=== PATIENT | female | born 1990 | race Caucasian/White ===

== ENCOUNTER → 2025-06-15 | Outpatient (CLI) | payer OTHER ==
[2025-06-15 09:28] LABS: BASO # 0.1 10^3/uL (0.0-0.2); BASO % 0.7 % (0.0-1.0); EOS # 0.2 10^3/uL (0.0-0.5); EOS % 3.1 % (0.0-3.0); LYMPH # 2.4 10^3/uL (1.5-5.0); LYMPH % 33.4 % (24.0-44.0); MONO # 0.7 10^3/uL (0.0-0.8); MONO % 9.0 % (2.0-8.0); NEUTROPHILS # 3.9 10^3/uL (1.5-8.5); NEUTROPHILS % 53.5 % (36.0-66.0); PLATELET COUNT, AUTOMATED 339 10^3/uL (150-450)
[2025-06-15 09:56] LABS: ALT/SGPT 15 U/L (7.0-40); AST/SGOT 18 U/L (<34); CALCIUM LEVEL 9.0 MG/DL (8.5-10.1); CARBON DIOXIDE LEVEL 23 MMOL/L (20-31); CHLORIDE LEVEL 105 MMOL/L (98-107); CREATININE FOR GFR 0.67 MG/DL (0.55-1.30); GLOMERULAR FILTRATION RATE > 90.0 (>60); IRON (FE) 201 UG/DL (50-170); PERCENT SATURATION 49.9 % (13.2-45.0); POTASSIUM SERUM 4.5 MMOL/L (3.5-5.1); SODIUM LEVEL 138 MMOL/L (136-145)
[2025-06-15 09:58] LABS: FREE T4 1.20 NG/DL (0.89-1.76)
[2025-06-15 10:09] LABS: HCG, SERUM QUANTITATIVE 22354.1 MIU/ML (<4.2)
== END ==
LOC: M LAB 08:23
PROVIDERS: ATTEND Nurse Practitioner Adult Health
DX: O99.011 Anemia complicating pregnancy, first trimester (principal); Z3A.01 Less than 8 weeks gestation of pregnancy; D50.9 Iron deficiency anemia, unspecified

== ENCOUNTER → 2025-06-22 | Outpatient (CLI) | payer OTHER | LOC: M LAB 08:35 | PROVIDERS: ATTEND Physician Assistant | DX: Z34.01 Encounter for supervision of normal first pregnancy, first trimester (principal); Z3A.01 Less than 8 weeks gestation of pregnancy ==

== ENCOUNTER → 2025-06-29 | Outpatient (CLI) | payer OTHER | LOC: M LAB 08:46 → M PLALAB 08:46 | PROVIDERS: ATTEND Physician Assistant | DX: Z3A.01 Less than 8 weeks gestation of pregnancy (principal) ==

== ENCOUNTER → 2025-08-06 | Outpatient (REF) | payer OTHER | LOC: M PLALAB 12:49 | PROVIDERS: ATTEND Student in an Organized Health Care Education/Training Program | DX: Z53.9 Procedure and treatment not carried out, unspecified reason (principal) ==

== ENCOUNTER → 2025-08-07 | Outpatient (CLI) | payer OTHER ==
[2025-08-07 19:29] LABS: TOTAL PROTEIN,RANDOM URINE 8.8 MG/DL (0.0-14.0)
[2025-08-07 19:36] LABS: LDH LACTATE DEHYDROGENASE 193 U/L (120-246)
[2025-08-07 19:37] LABS: ALT/SGPT 22 U/L (7.0-40); AST/SGOT 21 U/L (<34); CREATININE FOR GFR 0.74 MG/DL (0.55-1.30); GLOMERULAR FILTRATION RATE > 90.0 (>60); PLATELET COUNT, AUTOMATED 310 10^3/uL (150-450)
[2025-08-07 19:48] LABS: PLATELET COUNT, AUTOMATED 293 10^3/uL (150-450)
[2025-08-07 19:59] LABS: HIV 1&2 SCREEN NEGATIVE (NEGATIVE)
[2025-08-07 20:08] LABS: HEPATITIS C VIRUS ABY INDEX < 0.02 INDEX (<0.8)
[2025-08-07 20:20] LABS: Trichomonas vaginalis (AMP) NOT DETECTED (NEGATIVE)
[2025-08-07 20:44] LABS: GC DNA AMPLIFICATION NEGATIVE (NEGATIVE)
== END ==
LOC: M PLALAB 16:00
PROVIDERS: ATTEND Student in an Organized Health Care Education/Training Program
DX: O26.899 Other specified pregnancy related conditions, unspecified trimester (principal); R03.0 Elevated blood-pressure reading, without diagnosis of hypertension; Z3A.00 Weeks of gestation of pregnancy not specified

== ENCOUNTER → 2025-08-22 | Outpatient (CLI) | payer OTHER | LOC: M PLALAB 12:19 | PROVIDERS: ATTEND Student in an Organized Health Care Education/Training Program | DX: Z34.80 Encounter for supervision of other normal pregnancy, unspecified trimester (principal) ==

== ENCOUNTER → 2025-09-25 | Outpatient (CLI) | payer OTHER | LOC: M WHC 13:03 | PROVIDERS: ATTEND Student in an Organized Health Care Education/Training Program | DX: Z34.82 Encounter for supervision of other normal pregnancy, second trimester (principal); Z3A.20 20 weeks gestation of pregnancy ==

== ENCOUNTER → 2025-10-25 | Outpatient (CLI) | payer OTHER ==
[2025-10-25 15:55] LABS: PLATELET COUNT, AUTOMATED 246 10^3/uL (150-450)
[2025-10-25 16:53] LABS: Trichomonas vaginalis (AMP) NOT DETECTED (NEGATIVE)
[2025-10-25 17:00] LABS: HIV 1&2 SCREEN NEGATIVE (NEGATIVE)
[2025-10-25 17:07] LABS: HEPATITIS C VIRUS ABY INDEX < 0.02 INDEX (<0.8)
[2025-10-25 17:17] LABS: GC DNA AMPLIFICATION NEGATIVE (NEGATIVE)
== END ==
LOC: M PLALAB 14:19
PROVIDERS: ATTEND Obstetrics & Gynecology
DX: Z34.82 Encounter for supervision of other normal pregnancy, second trimester (principal)

== ENCOUNTER → 2025-10-29 | Outpatient (CLI) | payer OTHER | LOC: M WHC 07:41 | PROVIDERS: ATTEND Obstetrics & Gynecology | DX: Z34.82 Encounter for supervision of other normal pregnancy, second trimester (principal) ==